=== PATIENT | female | born 1975 | race Caucasian/White ===

== ENCOUNTER 2019-07-13 08:13 | Inpatient (IN) ==
[2019-07-08 13:23] LABS: Basophils # 0.1 10*3/uL (0.0-0.2); Basophils % 0.7 % (0.0-0.8); Eosinophils # 0.2 10*3/uL (0.0-0.87); Eosinophils % 1.4 % (0.00-10.9); Hematocrit 35.5 VOL% (35.7-47.0); Hemoglobin 11.6 GM/DL (12.0-16.0); Immature Granulocytes % 0.4 %; Immature Granulocytes Absolute 0.05 #; Lymphocytes # 3.1 10*3/uL (1.4-4.0); Lymphocytes % 27.5 % (21.3-54.2); Mean Corpuscular HGB Conc 32.7 GM/DL (32-36); Mean Corpuscular Volume 88.5 FL (87-102); Mean Platelet Volume 10.3 FL (9.6-12.0); Monocytes % 9.2 % (1.7-12.7); Neutrophils % 60.8 % (38.7-73.9); Platelet Count 307 T/CUMM (130-400); Red Blood Count 4.01 MC/CUMM (3.8-5.5); Red Cell Distribution Width 12.7 % (9.3-17.3); White Blood Count 11.4 T/CUMM (4-12)
[2019-07-08 13:54] LABS: Calcium 9.6 MG/DL (8.5-10.1); Osmolality,Calculated 269.2 MOS/KG (273-304)
[~2019-07-13 08:13] MED LIST: ACETAMINOPHEN INJ 1,000 MG in PREMIX 1 EACH IV ONE; HEPARIN 5,000 UNIT/1 ML VIAL SUBCUT ONE; HYOSCYAMINE 0.125 MG TABLET SL ONE; PANTOPRAZOLE 40 MG VIAL IV ONE; SCOPOLAMINE 1.5 MG PATCH TRANSDERM ONE; cefOXitin 2,000 MG in SYRINGE 1 EACH IV ONE
[2019-07-13] MEDS ORDERED: DIAZEPAM 5 MG TABLET PO ONE (08:47)
[2019-07-13] MEDS ORDERED: DIAZEPAM 5 MG TABLET ONE (08:50)
[2019-07-13] MEDS ORDERED: PANTOPRAZOLE 40 MG VIAL IV ONE (08:50)
[2019-07-13] MEDS ORDERED: SCOPOLAMINE 1.5 MG PATCH TRANSDERM ONE (08:51)
[2019-07-13] MEDS ORDERED: HYOSCYAMINE 0.125 MG TABLET ONE (08:51)
[2019-07-13] MEDS ORDERED: ACETAMINOPHEN 1,000 MG/100 ML VIAL IV ONE (08:52)
[2019-07-13] MEDS ORDERED: HEPARIN 5,000 UNIT/1 ML VIAL ONE (08:52)
[2019-07-13] MEDS ORDERED: LACTATED RINGERS 1,000 ML IV SCH (09:00)
[2019-07-13] MEDS ORDERED: BUPIVACAINE LIPOSOMAL 20 ML/266 MG VIAL ONE (10:56)
[2019-07-13] MEDS ORDERED: LIDOCAINE 1%/EPI INJ 20 ML VIAL ONE (11:12)
[2019-07-13] MEDS ORDERED: BUPIVACAINE MPF 0.25% 30 ML VIAL ONE (11:12)
[2019-07-13] MEDS ORDERED: ONDANSETRON 4 MG/2 ML VIAL IV PRN (11:46)
[2019-07-13] MEDS ORDERED: hydrALAZINE 20 MG/1 ML VIAL IV PRN (11:46)
[2019-07-13] MEDS ORDERED: HYDROcod/ACETAMIN 7.5-325 MG/15 ML UDCUP PO PRN (11:46)
[2019-07-13] MEDS ORDERED: HYDROmorphone 2 MG/1 ML VIAL IV PRN ×2 (11:46)
[2019-07-13] MEDS ORDERED: SUGAMMADEX 200 MG/2 ML VIAL IV ONE (12:03)
[2019-07-13] MEDS ORDERED: TISSUE ADHESIVE 1 EACH APPLICATOR TOP ONE (12:17)
[2019-07-13] MEDS ORDERED: MORPHINE 10 MG/1 ML VIAL ONE (12:22)
[2019-07-13] MEDS ORDERED: SEVOFLURANE 1 UNIT/15 MINUTE INH ONE (12:56)
[2019-07-13] MEDS ORDERED: MIDAZOLAM 2 MG/2 ML VIAL ONE (12:56)
[2019-07-13] MEDS ORDERED: DEXAMETHASONE 4 MG/1 ML VIAL ONE (12:56)
[2019-07-13] MEDS ORDERED: ROCURONIUM 100 MG/10 ML VIAL IV ONE (12:56)
[2019-07-13] MEDS ORDERED: PROPOFOL 200 MG/20 ML VIAL IV ONE (12:56)
[2019-07-13] MEDS ORDERED: LIDOCAINE 2% 5 ML VIAL ONE (12:56)
[2019-07-13] MEDS ORDERED: fentaNYL 100 MCG/2 ML VIAL ONE (12:56)
[2019-07-13] MEDS ORDERED: SUCCINYLCHOLINE 200 MG/10 ML VIAL ONE (12:56)
[2019-07-13] MEDS ORDERED: ONDANSETRON 4 MG/2 ML VIAL ONE (12:56)
[2019-07-13] MEDS ORDERED: LACTATED RINGERS 1,000 ML IV ONE (12:57)
[2019-07-13] MEDS: MORPHINE 10 MG/1 ML VIAL IV PRN ×4 (12:58→13:13)
[2019-07-13 14:36] LABS: Hematocrit 34.6 VOL% (35.7-47.0); Hemoglobin 11.5 GM/DL (12.0-16.0)
[2019-07-13 15:23] LABS: Apearance,Urine Slightly Hazy (Clear); Bilirubin,Urine Negative (Negative); Blood, Urine Negative (Negative); Glucose,Urine (UA) Negative (Negative); Ketones,Urine 5 mg/dL (Negative); Mucus,Urine Occasional /LPF (Occasional); Nitrite,Urine Negative (Negative); Protein,Urine Negative; Squamous Epithelial Cell,Urine Occasional /HPF (0-10); Urine Color Yellow (Yellow); Urine Specific Gravity 1.017 (1.001-1.035); Urine Urobilinogen < 2.0 EU/DL (0.2-1.0); WBC,Urine <1 /HPF (0-6)
[2019-07-13] MEDS: MORPHINE 4 MG/1 ML VIAL IV PRN ×2 (15:26→20:02)
[2019-07-13] MEDS: LACTATED RINGERS 1,000 ML IV SCH ×5 (16:10→20:04)
[2019-07-13] MEDS: ceFAZolin 2,000 MG in PREMIX 1 EACH IV SCH (18:05)
[2019-07-13] MEDS ORDERED: PROMETHAZINE 25 MG/1 ML VIAL IM PRN (18:23)
[2019-07-13] MEDS: LISINOPRIL 10 MG TABLET PO SCH (18:37)
[2019-07-14] MEDS: MORPHINE 4 MG/1 ML VIAL IV PRN ×3 (02:04→14:30)
[2019-07-14] MEDS: ceFAZolin 2,000 MG in PREMIX 1 EACH IV SCH (03:39)
[2019-07-14] MEDS: LACTATED RINGERS 1,000 ML IV SCH ×2 (03:40)
[2019-07-14] MEDS ORDERED: ceFAZolin 2,000 MG in PREMIX 1 EACH IV SCH (04:00)
[2019-07-14 06:40] LABS: Basophils % 0.1 % (0.0-0.8); Hematocrit 34.4 VOL% (35.7-47.0); Hemoglobin 11.4 GM/DL (12.0-16.0); Immature Granulocytes % 0.5 %; Immature Granulocytes Absolute 0.08 #; Lymphocytes # 2.4 10*3/uL (1.4-4.0); Lymphocytes % 16.1 % (21.3-54.2); Mean Corpuscular HGB Conc 33.1 GM/DL (32-36); Mean Corpuscular Volume 88.2 FL (87-102); Mean Platelet Volume 10.8 FL (9.6-12.0); Monocytes % 8.9 % (1.7-12.7); Neutrophils % 74.4 % (38.7-73.9); Platelet Count 341 T/CUMM (130-400)
[2019-07-14 07:19] LABS: Calcium 8.8 MG/DL (8.5-10.1); Osmolality,Calculated 268.1 MOS/KG (273-304)
[2019-07-14] MEDS: LISINOPRIL 10 MG TABLET PO SCH (08:19)
[2019-07-14] MEDS ORDERED: PANTOPRAZOLE 40 MG VIAL IV SCH (09:00)
[2019-07-14] MEDS ORDERED: LACTATED RINGERS 1,000 ML IV SCH (10:00)
[2019-07-14] MEDS ORDERED: SIMETHICONE CHEW 80 MG TABLET PO SCH (11:46)
[2019-07-14 12:07] VITALS: BP 116/50
[2019-07-14 12:58] LABS: Basophils # 0.1 10*3/uL (0.0-0.2); Basophils % 0.3 % (0.0-0.8); Eosinophils % 0.1 % (0.00-10.9); Hematocrit 33.9 VOL% (35.7-47.0); Hemoglobin 11.2 GM/DL (12.0-16.0); Immature Granulocytes % 0.5 %; Immature Granulocytes Absolute 0.07 #; Lymphocytes # 3.6 10*3/uL (1.4-4.0); Lymphocytes % 23.4 % (21.3-54.2); Mean Corpuscular Volume 87.8 FL (87-102); Monocytes % 8.6 % (1.7-12.7); Neutrophils % 67.1 % (38.7-73.9); Platelet Count 313 T/CUMM (130-400); Red Blood Count 3.86 MC/CUMM (3.8-5.5); White Blood Count 15.2 T/CUMM (4-12)
[2019-07-15] MEDS ORDERED: ENOXAPARIN 40 MG/0.4 ML SYRINGE SUBCUT SCH (09:00)
[2019-07-15] MEDS ORDERED: LEVOTHYROXINE 88 MCG TABLET PO SCH (09:00)
== END 2019-07-14 16:06 | disposition home or self-care (01) | DRG 621 ==
LOC: N.SDSINP 08:13 → N.3E 13:49
PROVIDERS: ADMIT Surgery; ATTEND Surgery